=== PATIENT | female | born 1990 | race Caucasian/White ===

== ENCOUNTER 2020-04-18 17:58 | Inpatient (IN) | payer OTHER ==
[~2020-04-18] VITALS: Ht 177.8 cm; Wt 93.0 kg
[~2020-04-18 17:58] MED LIST: IBUP-1222 PO; OMEP20TA62 PO; OXYC-302 PO; PREN-3 PO
[2020-04-18] MEDS ORDERED: ACETAMINOPHEN 500 MG TABLET ONE (18:13)
[2020-04-18] MEDS ORDERED: SODIUM CHLORIDE 0.9% 1,000 ML IV ONE ×2 (18:43→20:55)
[2020-04-18 19:00] LABS: MEAN CORPUSCULAR HEMOGLOBIN 28.1 pg (27.0-34.8); MEAN CORPUSCULAR HGB CONC 33.2 g/dL (32.4-35.8); MEAN CORPUSCULAR VOLUME 84.5 fL (80-100); MEAN PLATELET VOLUME 8.1 fL (7.4-10.4); PLATELET COUNT 699 x10^3/uL (130-400); RED BLOOD COUNT 5.16 x10^6/uL (3.82-5.3); RED CELL DISTRIBUTION WIDTH 13.5 % (9.6-15.2)
[2020-04-18] MEDS ORDERED: SODIUM CHLORIDE 0.9% 1,000ML IVBOLUS ONE (19:00)
--- NOTE | 2020-04-18 19:00 | NUR ---
PT STATES LOW ABD PAIN/CRAMPING X3 WEEKS. STATES WORSE X1 DAY, STATES NOW WORSE IN RLQ AREA. PT STATES SOME CONSTIPATION WELL, STATES HX OF SAME. IV STARTED BY ASSIGNMENT DESK ASSISTANT PER ORDERS, FLUIDS HUNG. PT UP TO VOID, UA SAMPLE COLLECTED AND SENT TO LAB. ON MONITORS, VSS. CONT TO MONITOR.
[2020-04-18 19:10] LABS: ALANINE AMINOTRANSFERASE 71 U/L (12-78); ALBUMIN 3.2 g/dL (3.4-5.0); ANION GAP 7 mmol/L (5-15); CALCIUM 9.4 mg/dL (8.5-10.1); CHLORIDE 101 mmol/L (98-107); CREATININE 0.76 mg/dL (0.55-1.02)
[2020-04-18 19:13] LABS: MICROSCOPIC AUTO
[2020-04-18 19:14] LABS: ALKALINE PHOSPHATASE 197 U/L (45-117); BILIRUBIN,TOTAL 0.7 mg/dL (0.2-1.0); TOTAL PROTEIN 9.3 g/dL (6.4-8.2)
[2020-04-18 19:21] LABS: BASOPHILS # (AUTO) 0.15 x10^3/uL (0-0.1); BASOPHILS % (AUTO) 1 % (0-1); EOSINOPHILS # (AUTO) 0.09 x10^3/uL (0-0.4); EOSINOPHILS % (AUTO) 0 % (1-7); LYMPHOCYTES # (AUTO) 2.26 x10^3/uL (1-3.4); LYMPHOCYTES % (AUTO) 11 % (22-44); MD SCAN; MONOCYTES # (AUTO) 1.35 x10^3/uL (0.2-0.8); MONOCYTES % (AUTO) 6 % (2-9); NEUTROPHILS # (AUTO) 17.19 x10^3/uL (1.8-6.8); NEUTROPHILS % (AUTO) 82 % (42-75)
--- NOTE | 2020-04-18 19:36 | NUR ---
PT BACK FROM IMAGING, AWAITING RESULTS. PT DENIES NEEDS, STATES PAIN LEVEL COMFORTABLE. NO DISTRESS, CONT TO MONITOR.
[2020-04-18] MEDS ORDERED: CEFTRIAXONE PMX 1GM/50ML 50 ML ONE (20:27)
[2020-04-18] MEDS ORDERED: CEFTRIAXONE PMX 1GM/50ML 50 ML IV ONE (20:30)
--- NOTE | 2020-04-18 20:46 | NUR ---
PT UPDATED ON POC BY ER MD. PT TO BE SURGERY ADMIT, PT VERBALIZED UNDERSTANGING. IVABX HUNG PER ERMD ORDERS, NO BLOOD CULTURES NEEDED. PT REMAINS ON MONITORS, VSS. PT STATES PAIN CONTROLLED. CONT TO MONITOR.
[2020-04-18] MEDS ORDERED: MORPHINE SULFATE 4 MG/ML, 1ML IVPush PRN (21:00)
[2020-04-18] MEDS ORDERED: ONDANSETRON 2MG/ML, 2ML IVPush PRN (21:00)
--- NOTE | 2020-04-18 21:31 | NUR ---
REPORT GIVEN TO RAPHAEL HERRERA ON MED/SURG FLOOR, PT OK TO TRANSFER TO FLOOR. REPORT GIVEN TO GEORGE HERRERA IN ER, AWARE PT OK TO TRANSFER TO FLOOR.
[2020-04-18 22:00] VITALS: BP 112/63
[2020-04-18] MEDS ORDERED: OMNIPAQUE 350 MG/ML, 100ML BOTTLE ONE (23:09)
[2020-04-19] VITALS: BP 116/73
[2020-04-19] MEDS ORDERED: ONDANSETRON 2MG/ML, 2ML IVPush PRN ×2 (00:30→08:00)
[2020-04-19] MEDS: MORPHINE SULFATE 4 MG/ML, 1ML IVPush PRN ×2 (01:24→05:47)
[2020-04-19] MEDS ORDERED: NORE0.3547 PO (03:11)
[2020-04-19 03:57] VITALS: BP 106/63
[2020-04-19] MEDS ORDERED: BUPIVACAINE/EPI 0.5% 1:200K ONE (06:46)
[2020-04-19] MEDS ORDERED: CHLORHEXIDINE 15 ML UDC MM ONE (07:00)
[2020-04-19] MEDS ORDERED: MIDAZOLAM 1 MG/ML, 2ML ONE (07:16)
[2020-04-19] MEDS ORDERED: FENTANYL PF 100 MCG/2ML ONE ×3 (07:23→09:08)
[2020-04-19] MEDS ORDERED: SUGAMMADEX 200 MG/2 ML IVPush ONE (07:24)
[2020-04-19] MEDS ORDERED: DEXAMETHASONE 4 MG/ML, 1ML ONE (07:24)
[2020-04-19] MEDS ORDERED: ROCURONIUM 10 MG/ML,10ML ONE (07:24)
[2020-04-19] MEDS ORDERED: CEFAZOLIN PMX 1GM/50ML ONE (07:24)
[2020-04-19] MEDS ORDERED: KETOROLAC 30 MG/1 ML ONE (07:24)
[2020-04-19] MEDS ORDERED: PROPOFOL 10 MG/ML, 100ML IV ONE (07:24)
[2020-04-19 07:33] VITALS: BP 118/75
[2020-04-19] MEDS ORDERED: hydrALAzine 20 MG/ML, 1ML IV PRN (08:00)
[2020-04-19] MEDS ORDERED: LABETALOL 5MG/ML, 20ML IV PRN (08:00)
[2020-04-19] MEDS ORDERED: MEPERIDINE/PF 25MG/0.5ML IVPush PRN (08:00)
[2020-04-19] MEDS ORDERED: DIPHENHYDRAMINE 50 MG/ML, 1ML IVPush PRN (08:00)
[2020-04-19] MEDS ORDERED: FENTANYL PF 100 MCG/2ML IV PRN (08:00)
[2020-04-19] MEDS ORDERED: DIAZEPAM 5 MG/ML, 2ML IVPush PRN (08:00)
[2020-04-19] MEDS ORDERED: PROMETHAZINE 25 MG/ML, 1ML IVPush PRN (08:00)
[2020-04-19] MEDS ORDERED: OXYcodone 5 MG/5 ML ORAL.SOL UDC PO PRN (08:00)
[2020-04-19] MEDS ORDERED: HYDROmorphone 1 MG/ML, 1ML INJ IVPush PRN (08:00)
[2020-04-19] MEDS ORDERED: OXYcodone 5 MG/5 ML ORAL.SOL UDC ONE (09:08)
[2020-04-19] MEDS ORDERED: HYDROmorphone 2 MG/ML, 1ML IVPush PRN (11:00)
[2020-04-19] MEDS ORDERED: LACTATED RINGERS 1,000 ML IV SCH (11:00)
[2020-04-19] MEDS: METRONIDAZOLE PMX 500MG/100ML 100 ML IVPB SCH ×2 (11:34→20:11)
[2020-04-19 13:12] VITALS: BP 114/67
[2020-04-19] MEDS: CIPROFLOXACIN/PMX 400MG/200ML 200 ML IVPB SCH (14:28)
[2020-04-19] MEDS: OXYcodone 5 MG/5 ML ORAL.SOL UDC PO PRN ×2 (17:02→21:24)
[2020-04-19 19:37] VITALS: BP 103/63
[2020-04-19] MEDS: HEPARIN 5,000 UNITS/ML, 1ML SQ SCH (21:24)
[2020-04-19 23:29] VITALS: BP 111/70
[2020-04-20] MEDS: CIPROFLOXACIN/PMX 400MG/200ML 200 ML IVPB SCH (02:46)
[2020-04-20 02:52] VITALS: BP 107/69
[2020-04-20] MEDS: OXYcodone 5 MG/5 ML ORAL.SOL UDC PO PRN ×5 (02:57→21:29)
[2020-04-20] MEDS: HEPARIN 5,000 UNITS/ML, 1ML SQ SCH ×3 (06:03→21:29)
[2020-04-20 07:16] VITALS: BP_SYST 116
[2020-04-20] MEDS ORDERED: SENNOSIDES 8.8 MG/5 ML ORAL SOL PO PRN (08:30)
[2020-04-20 09:31] LABS: ALBUMIN 2.4 g/dL (3.4-5.0); ANION GAP 7 mmol/L (5-15); CALCIUM 9.4 mg/dL (8.5-10.1); CHLORIDE 106 mmol/L (98-107); CREATININE 0.62 mg/dL (0.55-1.02)
[2020-04-20 09:38] LABS: MEAN CORPUSCULAR HEMOGLOBIN 27.9 pg (27.0-34.8); MEAN CORPUSCULAR HGB CONC 32.7 g/dL (32.4-35.8); MEAN CORPUSCULAR VOLUME 85.2 fL (80-100); MEAN PLATELET VOLUME 8.1 fL (7.4-10.4); PLATELET COUNT 666 x10^3/uL (130-400); RED BLOOD COUNT 4.27 x10^6/uL (3.82-5.3); RED CELL DISTRIBUTION WIDTH 14.1 % (9.6-15.2)
[2020-04-20] MEDS: DOCUSATE 50 MG/5 ML, 10ML UDC PO SCH ×2 (09:54→21:00)
[2020-04-20] MEDS: METRONIDAZOLE PMX 500MG/100ML 100 ML IV SCH ×2 (09:54→17:34)
[2020-04-20 09:55] LABS: BASOPHILS % (AUTO) 1 % (0-1); EOSINOPHILS % (AUTO) 0 % (1-7); LYMPHOCYTES # (AUTO) 2.09 x10^3/uL (1-3.4); LYMPHOCYTES % (AUTO) 11 % (22-44); MD SCAN; MONOCYTES # (AUTO) 0.53 x10^3/uL (0.2-0.8); MONOCYTES % (AUTO) 3 % (2-9); NEUTROPHILS # (AUTO) 17.02 x10^3/uL (1.8-6.8); NEUTROPHILS % (AUTO) 86 % (42-75)
[2020-04-20 12:49] VITALS: BP 122/74
[2020-04-20] MEDS: CIPROFLOXACIN/PMX 400MG/200ML 200 ML IV SCH (14:42)
[2020-04-20 16:57] VITALS: BP 123/81
[2020-04-20] MEDS ORDERED: IBUPROFEN 200 MG TABLET PO ONE (17:00)
[2020-04-20 19:38] VITALS: BP 125/84
[2020-04-21] MEDS: METRONIDAZOLE PMX 500MG/100ML 100 ML IV SCH ×3 (01:38→18:11)
[2020-04-21] MEDS: OXYcodone 5 MG/5 ML ORAL.SOL UDC PO PRN ×4 (01:38→22:46)
[2020-04-21] MEDS: CIPROFLOXACIN/PMX 400MG/200ML 200 ML IV SCH ×2 (02:58→14:06)
[2020-04-21 04:19] VITALS: BP 114/69
[2020-04-21] MEDS: HEPARIN 5,000 UNITS/ML, 1ML SQ SCH ×3 (06:02→22:45)
[2020-04-21 06:47] LABS: MEAN CORPUSCULAR HEMOGLOBIN 27.7 pg (27.0-34.8); MEAN CORPUSCULAR HGB CONC 32.5 g/dL (32.4-35.8); MEAN CORPUSCULAR VOLUME 85.4 fL (80-100); MEAN PLATELET VOLUME 8.1 fL (7.4-10.4); PLATELET COUNT 691 x10^3/uL (130-400); RED BLOOD COUNT 4.03 x10^6/uL (3.82-5.3); RED CELL DISTRIBUTION WIDTH 13.9 % (9.6-15.2)
[2020-04-21 06:58] LABS: ALBUMIN 2.3 g/dL (3.4-5.0); ANION GAP 7 mmol/L (5-15); CALCIUM 8.9 mg/dL (8.5-10.1); CHLORIDE 104 mmol/L (98-107); CREATININE 0.58 mg/dL (0.55-1.02)
[2020-04-21 07:33] LABS: BASOPHILS # (AUTO) 0.12 x10^3/uL (0-0.1); BASOPHILS % (AUTO) 1 % (0-1); EOSINOPHILS # (AUTO) 0.13 x10^3/uL (0-0.4); EOSINOPHILS % (AUTO) 1 % (1-7); LYMPHOCYTES # (AUTO) 2.14 x10^3/uL (1-3.4); LYMPHOCYTES % (AUTO) 12 % (22-44); MD SCAN; MONOCYTES # (AUTO) 0.83 x10^3/uL (0.2-0.8); MONOCYTES % (AUTO) 5 % (2-9); NEUTROPHILS % (AUTO) 82 % (42-75)
[2020-04-21 07:37] VITALS: BP 121/70
[2020-04-21] MEDS: DOCUSATE 50 MG/5 ML, 10ML UDC PO SCH ×2 (07:44→22:45)
[2020-04-21 12:41] VITALS: BP 108/66
[2020-04-21] MEDS: ACETAMINOPHEN 325 MG TABLET PO PRN (14:06)
[2020-04-21 18:51] VITALS: BP 128/78
[2020-04-21 23:55] VITALS: BP 111/65
[2020-04-22] MEDS: METRONIDAZOLE PMX 500MG/100ML 100 ML IV SCH ×3 (01:51→17:32)
[2020-04-22] MEDS: CIPROFLOXACIN/PMX 400MG/200ML 200 ML IV SCH ×2 (02:51→14:28)
[2020-04-22] MEDS: OXYcodone 5 MG/5 ML ORAL.SOL UDC PO PRN ×5 (02:51→23:53)
[2020-04-22 03:54] VITALS: BP 102/65
[2020-04-22 05:20] LABS: MEAN CORPUSCULAR HEMOGLOBIN 27.5 pg (27.0-34.8); MEAN CORPUSCULAR HGB CONC 32.4 g/dL (32.4-35.8); MEAN CORPUSCULAR VOLUME 84.7 fL (80-100); MEAN PLATELET VOLUME 7.8 fL (7.4-10.4); PLATELET COUNT 703 x10^3/uL (130-400); RED BLOOD COUNT 3.88 x10^6/uL (3.82-5.3); RED CELL DISTRIBUTION WIDTH 14.3 % (9.6-15.2)
[2020-04-22 05:23] LABS: ANION GAP 6 mmol/L (5-15); CALCIUM 8.4 mg/dL (8.5-10.1); CHLORIDE 103 mmol/L (98-107); CREATININE 0.61 mg/dL (0.55-1.02)
[2020-04-22 05:50] LABS: BASOPHILS % (AUTO) 1 % (0-1); EOSINOPHILS % (AUTO) 1 % (1-7); LYMPHOCYTES % (AUTO) 16 % (22-44); MD SCAN; MONOCYTES # (AUTO) 1.32 x10^3/uL (0.2-0.8); MONOCYTES % (AUTO) 7 % (2-9); NEUTROPHILS # (AUTO) 13.77 x10^3/uL (1.8-6.8); NEUTROPHILS % (AUTO) 76 % (42-75)
[2020-04-22] MEDS: HEPARIN 5,000 UNITS/ML, 1ML SQ SCH (06:20)
[2020-04-22 06:50] VITALS: BP 98/64
[2020-04-22] MEDS: DOCUSATE 50 MG/5 ML, 10ML UDC PO SCH ×2 (08:31→19:48)
[2020-04-22] MEDS ORDERED: OMNIPAQUE 350 MG/ML, 100ML BOTTLE ONE (11:16)
[2020-04-22 12:26] VITALS: BP 109/66
[2020-04-22 13:56] VITALS: BP 111/71
[2020-04-22 16:34] VITALS: BP 107/68
[2020-04-22 18:52] VITALS: BP 116/67
[2020-04-22] MEDS: ACETAMINOPHEN 325 MG TABLET PO PRN (19:48)
[2020-04-23] VITALS (7 sets, daily range): BP systolic 98–120; BP diastolic 63–78
[2020-04-23] MEDS: METRONIDAZOLE PMX 500MG/100ML 100 ML IV SCH ×3 (02:05→20:06)
[2020-04-23] MEDS: CIPROFLOXACIN/PMX 400MG/200ML 200 ML IV SCH ×2 (03:18→14:43)
[2020-04-23] MEDS: OXYcodone 5 MG/5 ML ORAL.SOL UDC PO PRN ×4 (03:59→21:03)
[2020-04-23 05:19] LABS: MEAN CORPUSCULAR HEMOGLOBIN 27.6 pg (27.0-34.8); MEAN CORPUSCULAR HGB CONC 32.7 g/dL (32.4-35.8); MEAN CORPUSCULAR VOLUME 84.6 fL (80-100); MEAN PLATELET VOLUME 7.7 fL (7.4-10.4); PLATELET COUNT 707 x10^3/uL (130-400); RED BLOOD COUNT 3.89 x10^6/uL (3.82-5.3); RED CELL DISTRIBUTION WIDTH 14.2 % (9.6-15.2)
[2020-04-23 05:35] LABS: CHLORIDE 105 mmol/L (98-107)
[2020-04-23 05:45] LABS: ANION GAP 8 mmol/L (5-15); CALCIUM 8.8 mg/dL (8.5-10.1); CREATININE 0.54 mg/dL (0.55-1.02)
[2020-04-23 06:33] LABS: BASOPHILS # (AUTO) 0.09 x10^3/uL (0-0.1); BASOPHILS % (AUTO) 1 % (0-1); EOSINOPHILS # (AUTO) 0.27 x10^3/uL (0-0.4); EOSINOPHILS % (AUTO) 2 % (1-7); LYMPHOCYTES # (AUTO) 2.41 x10^3/uL (1-3.4); LYMPHOCYTES % (AUTO) 14 % (22-44); MD SCAN; MONOCYTES # (AUTO) 1.09 x10^3/uL (0.2-0.8); MONOCYTES % (AUTO) 6 % (2-9); NEUTROPHILS # (AUTO) 13.56 x10^3/uL (1.8-6.8); NEUTROPHILS % (AUTO) 78 % (42-75)
[2020-04-23] MEDS: DOCUSATE 50 MG/5 ML, 10ML UDC PO SCH ×2 (07:55→20:08)
[2020-04-23] MEDS ORDERED: LIDOCAINE 1%, 10ML ONE (09:10)
[2020-04-23] MEDS ORDERED: FLUMAZENIL 0.1 MG/1 ML, 5ML ONE (09:14)
[2020-04-23] MEDS ORDERED: MIDAZOLAM 1 MG/ML, 5ML ONE (09:14)
[2020-04-23] MEDS ORDERED: NALOXONE 1 MG/ML, 2ML ONE (09:15)
[2020-04-24 00:40] VITALS: BP 106/64
[2020-04-24] MEDS: OXYcodone 5 MG/5 ML ORAL.SOL UDC PO PRN ×6 (01:15→23:47)
[2020-04-24] MEDS: CIPROFLOXACIN/PMX 400MG/200ML 200 ML IV SCH ×2 (02:32→15:00)
[2020-04-24 03:34] VITALS: BP 99/59
[2020-04-24] MEDS: METRONIDAZOLE PMX 500MG/100ML 100 ML IV SCH ×3 (04:01→19:44)
[2020-04-24 08:58] LABS: MEAN CORPUSCULAR HEMOGLOBIN 27.1 pg (27.0-34.8); MEAN CORPUSCULAR VOLUME 84.9 fL (80-100); MEAN PLATELET VOLUME 7.2 fL (7.4-10.4); PLATELET COUNT 981 x10^3/uL (130-400); RED BLOOD COUNT 4.18 x10^6/uL (3.82-5.3)
[2020-04-24 08:59] LABS: ALBUMIN 2.3 g/dL (3.4-5.0); ANION GAP 6 mmol/L (5-15); CALCIUM 9.1 mg/dL (8.5-10.1); CHLORIDE 104 mmol/L (98-107); CREATININE 0.58 mg/dL (0.55-1.02)
[2020-04-24 09:21] LABS: MD YES
[2020-04-24 09:23] LABS: EOS#(MANUAL) 0.34 x10^3/uL (0.0-0.4); EOS% (MANUAL) 2 % (1-7); LYMPH#(MANUAL) 3.04 x10^3/uL (1-3.4); LYMPHS% (MANUAL) 18 % (22-44); MONOS#(MANUAL) 1.01 x10^3/uL (0.3-2.7); MONOS% (MANUAL) 6 % (2-9); SEG#(MANUAL) 12.51 x10^3/uL (1.8-6.8); SEGS% (MANUAL) 74 % (42-75)
[2020-04-24 09:24] LABS: <PLATELET ESTIMATE> INCREASED; <RBC MORPHOLOGY> NORMAL; LARGE PLATELETS 1+
[2020-04-24] MEDS: DOCUSATE 50 MG/5 ML, 10ML UDC PO SCH ×2 (09:35→21:25)
[2020-04-24 10:30] VITALS: BP 114/73
[2020-04-24 16:59] VITALS: BP 118/78
[2020-04-24 19:57] VITALS: BP 111/74
[2020-04-24] MEDS: ACETAMINOPHEN 325 MG TABLET PO PRN (23:46)
[2020-04-25] VITALS: BP 103/57
[2020-04-25] MEDS: CIPROFLOXACIN/PMX 400MG/200ML 200 ML IV SCH (02:40)
[2020-04-25] MEDS: OXYcodone 5 MG/5 ML ORAL.SOL UDC PO PRN ×2 (03:50→09:08)
[2020-04-25] MEDS: METRONIDAZOLE PMX 500MG/100ML 100 ML IV SCH (03:51)
[2020-04-25 03:58] VITALS: BP 115/77
[2020-04-25 05:20] LABS: MEAN CORPUSCULAR HGB CONC 33.2 g/dL (32.4-35.8); MEAN CORPUSCULAR VOLUME 84.6 fL (80-100); MEAN PLATELET VOLUME 7.3 fL (7.4-10.4); PLATELET COUNT 900 x10^3/uL (130-400); RED BLOOD COUNT 4.04 x10^6/uL (3.82-5.3)
[2020-04-25 05:31] LABS: ALBUMIN 2.1 g/dL (3.4-5.0); ANION GAP 6 mmol/L (5-15); CALCIUM 8.7 mg/dL (8.5-10.1); CHLORIDE 107 mmol/L (98-107)
[2020-04-25 05:32] LABS: CREATININE 0.52 mg/dL (0.55-1.02)
[2020-04-25 06:02] LABS: BASOPHILS # (AUTO) 0.07 x10^3/uL (0-0.1); BASOPHILS % (AUTO) 1 % (0-1); EOSINOPHILS % (AUTO) 4 % (1-7); LYMPHOCYTES # (AUTO) 2.38 x10^3/uL (1-3.4); LYMPHOCYTES % (AUTO) 23 % (22-44); MD SCAN; MONOCYTES # (AUTO) 0.63 x10^3/uL (0.2-0.8); MONOCYTES % (AUTO) 6 % (2-9); NEUTROPHILS # (AUTO) 6.97 x10^3/uL (1.8-6.8); NEUTROPHILS % (AUTO) 67 % (42-75)
[2020-04-25 07:33] VITALS: BP 130/77
[2020-04-25] MEDS: ACETAMINOPHEN 325 MG TABLET PO PRN (09:07)
[2020-04-25] MEDS: DOCUSATE 50 MG/5 ML, 10ML UDC PO SCH (09:08)
[2020-04-25] MEDS ORDERED: AMOXICILLIN/CLAV 875-125MG TABLET PO SCH (09:30)
[2020-04-25] MEDS ORDERED: OXYC5TAB2 PO (10:02)
[2020-04-25] MEDS ORDERED: AMOX1TAB64 PO (10:03)
[2020-04-25 11:41] VITALS: BP 126/84
== END 2020-04-25 11:56 | disposition home or self-care (01) | DRG 339 ==
LOC: ED 19:02 → EDIP 21:03 → UNDOADMIN 21:03 → EDIP 21:12 → 4NE 21:41 → 4EST 04-19 13:47 → 4NE 04-19 13:47
PROVIDERS: ADMIT Surgery; ATTEND Surgery
PROC: 0DTJ4ZZ Resection of Appendix, Percutaneous Endoscopic Approach (ICD-10-PCS; principal; 2020-04-19 07:30)
PROC: 0W9J30Z Drainage of Pelvic Cavity with Drainage Device, Percutaneous Approach (ICD-10-PCS; 2020-04-23)
DX: K35.33 Acute appendicitis with perforation, localized peritonitis, and gangrene, with abscess (principal); N13.30 Unspecified hydronephrosis; K59.00 Constipation, unspecified; Z20.828 Contact with and (suspected) exposure to other viral communicable diseases; Z88.8 Allergy status to other drugs, medicaments and biological substances
CPT/HCPCS: 36415; 75989; 96360; 99285; J3490; 49406; 74177; 80048; 80053; 81001; 82040; 83690; 84703; 85025; 87070; 87075; 87077; 87086; 87186; 87205; 87635; 99156; 99157; C1894; G0378; J0690; J0696; J0744; J1100; J1644; J1885; J2250; J2405; J2704; J3010; Q9967; C1729; C1769; J2270; J2310; J7030